=== PATIENT | female | born 1950 | race Caucasian/White ===

== ENCOUNTER 2021-05-07 11:18 | Emergency (ER) | payer MEDICARE, OTHER ==
[2021-05-07] MEDS ORDERED: Sodium Chloride 0.9% 10 ML Syringe FLUSH PRN (12:04)
[2021-05-07] MEDS ORDERED: Aspirin 81 MG Tab.Chew PO ONE (12:05)
[2021-05-07] MEDS ORDERED: Diazepam 5 MG Tab PO ONE (12:05)
[2021-05-07] MEDS ORDERED: Ketorolac 30 MG/ML SDV IVPUSH ONE (12:05)
--- NOTE | 2021-05-07 12:12 | EDM.PDOC ---
ED HPI GENERAL MEDICAL PROBLEM - General Chief Complaint: Back Pain or Injury Stated Complaint: UPPER TORSO PAIN Time Seen by Provider: 05/07/21 11:56 Source of Information: Reports: Patient - History of Present Illness INITIAL COMMENTS - FREE TEXT/NARRATIVE: Marlene is a 71 y/o female who was sent to the ER by clinic staff with complaints of left sided chest/back pain. She reports that she has had the dull pain for the last 3 days. Does get a bit SOB at times and had 2 episodes of becoming diaphoretic. She does not have any cardiac history. Does report the dull pain goes up into her left axillae region. She did try some ibuprofen last night, but that did not give her much relief. She did also try a dose of aspirin and that helped a little bit. She denies any trauma, but does have a daily episode of hard sneezing and that may have pulled a muscle, but that has never happened before. Denies any family hx of clots. Left Middle Back Pain Score (Numeric/FACES): 6 - Related Data Allergies Allergy/AdvReac Type Severity Reaction Status Date / Time codeine Allergy Nausea and Verified 05/07/21 11:40 Vomiting Home Meds: Home Meds Cyclobenzaprine [Flexeril] 10 mg PO TID PRN #15 tab 05/07/21 [Rx] Past Medical History - Past Health History Medical/Surgical History: Denies Medical/Surgical History Social & Family History - Tobacco Use Tobacco Use Status *Q: Light Tobacco User Years of Tobacco use: 15 Packs/Tins Daily: 0.1 Review of Systems - Review of Systems Review Of Systems: See Below Constitutional: Reports: No Symptoms Eyes: Reports: No Symptoms Ears: Reports: No Symptoms Nose: Reports: No Symptoms Mouth/Throat: Reports: No Symptoms Respiratory: Reports: Shortness of Breath (occasional with pain in her left chest region) Cardiovascular: Reports: Chest Pain (left side and back ) GI/Abdominal: Reports: No Symptoms Genitourinary: Reports: No Symptoms Musculoskeletal: Reports: Back Pain Skin: Reports: No Symptoms Neurological: Reports: No Symptoms Psychiatric: Reports: No Symptoms ED EXAM, GENERAL - Physical Exam Exam: See Below Exam Limited By: No Limitations General Appearance: Alert, WD/WN, No Apparent Distress, Other (Adult female) Ears: Normal External Exam, Normal Canal, Hearing Grossly Normal Nose: Normal Inspection Throat/Mouth: Normal Inspection, Normal Lips, Normal Voice Head: Atraumatic, Normocephalic Neck: Normal Inspection, Supple Respiratory/Chest: Lungs Clear, Other (No reproducible chest pain on palpation) Cardiovascular: Normal Peripheral Pulses, Regular Rate, Rhythm GI/Abdominal: Normal Bowel Sounds, Soft (Female) Exam: Deferred Rectal (Female) Exam: Deferred Back Exam: Muscle Spasm (left upper back region) Extremities: Normal Inspection, Normal Range of Motion, No Pedal Edema, Normal Capillary Refill Neurological: Alert, Oriented, CN II-XII Intact, No Motor/Sensory Deficits Psychiatric: Normal Affect, Normal Mood Skin Exam: Warm, Dry, Intact, Normal Color Lymphatic: No Adenopathy #1 Interpretation EKG Date: 05/07/21 Time: 11:29 Rhythm: NSR Rate (Beats/Min): 67 [place]: Normal P-Wave: Present QRS: Normal ST-T: Normal QT: Normal EKG Interpretation Comments: NSR Course - Vital Signs Text/Narrative:: 1156 The patient was seen by the [employer]. Labs, Xray, and EKG ordered. Will need to rule out PE, but suspicious for musculoskeletal pain. Toradol 30mg IVP and Diazepam 10mg po ordered. ASA 324mg po to be repeated if not taken this AM at home. 1330 Labs reviewed, all negative findings. Xray reviewed and negative. Patient reports feeling better after meds and rest. Favor muscle spasm as diagnosis. Written instructions were given and she left the ER in stable condition. Last Recorded V/S: Last Vital Signs Temp 36.4 C 05/07/21 11:22 Pulse 71 05/07/21 11:22 Resp 14 05/07/21 11:22 BP 163/62 H 05/07/21 11:22 Pulse Ox 98 05/07/21 11:22 - Orders/Labs/Meds Orders: Active Orders 24 hr Category Date Time Status EKG Documentation Completion [RC] STAT Care 05/07/21 12:03 Active Ribs 3V wo Chest Lt [CR] Stat Exams 05/07/21 12:04 Ordered Sodium Chloride 0.9% [Saline Flush] Med 05/07/21 12:04 Active 10 ml FLUSH ASDIRECTED PRN Saline Lock Insert [OM.PC] Stat Oth 07/21/21 12:03 Ordered Medication Orders Sodium Chloride (Sodium Chloride 0.9% 10 Ml Syringe) 10 ml FLUSH ASDIRECTED PRN PRN Reason: Keep Vein Open Labs: Laboratory Tests 05/07/21 05/07/21 05/07/21 Range/Units 12:18 12:18 12:18 WBC 10.0 (4.0-10.0) x10^3/uL RBC 5.12 (4.00-5.50) x10^6/uL Hgb 15.8 (12.0-16.0) g/dL Hct 47.1 H (33.0-47.0) % MCV 92.0 (78.0-93.0) fL MCH 30.9 (26.0-32.0) pg MCHC 33.5 (32.0-36.0) g/dL RDW Coeff of Kirill 13.7 (10.0-15.0) % Plt Count 307 (130-400) x10^3/uL Neut % (Auto) 78.6 (50.0-80.0) % Lymph % (Auto) 15.7 L (25.0-50.0) % [place] % (Auto) 4.1 (2.0-11.0) % Eos % (Auto) 1.3 (0.0-4.0) % Baso % (Auto) 0.3 (0.2-1.2) % D-Dimer, Quantitative 0.47 (<=0.58) mg/LFEU Sodium 141 (136-145) mmol/L Potassium 4.7 (3.5-5.1) mmol/L Chloride 104 (98-107) mmol/L Carbon Dioxide 31 (21-32) mmol/L Anion Gap 10.7 (5-15) mmol/L BUN 17 (7-18) mg/dL Creatinine 1.0 (0.55-1.02) mg/dL Est Cr Clr Drug Dosing TNP Estimated GFR (MDRD) 55 Glucose 99 (70-99) mg/dL Calcium 8.8 (8.5-10.1) mg/dL Corrected Calcium 8.8 (8.5-10.1) mg/dL Total Bilirubin 0.3 (0.2-1.0) mg/dL AST 25 (15-37) U/L ALT 42 (14-59) U/L Alkaline Phosphatase 97 (46-116) U/L Troponin I High Sens 5 (<=51) ng/L Total Protein 7.6 (6.4-8.2) g/dL Albumin 4.0 (3.4-5.0) g/dL Globulin 3.6 Albumin/Globulin Ratio 1.11 Meds: Medications Generic Name Dose Route Start Last Admin Trade Name Иван PRN Reason Stop Dose Admin Sodium Chloride 10 ml 05/07/21 12:04 Sodium Chloride 0.9% 10 Ml Syringe FLUSH ASDIRECTED PRN Keep Vein Open Discontinued Medications Generic Name Dose Route Start Last Admin Trade Name Freelvia PRN Reason Stop Dose Admin Aspirin 324 mg 05/07/21 12:05 05/07/21 11:30 Aspirin 81 Mg Tab.Chew PO 05/07/21 12:06 324 mg ONETIME ONE Administration Diazepam 10 mg 05/07/21 12:05 05/07/21 12:21 Diazepam 5 Mg Tab PO 05/07/21 12:06 10 mg ONETIME ONE Administration Ketorolac Tromethamine 30 mg 05/07/21 12:05 05/07/21 12:22 Ketorolac 30 Mg/Ml Sdv IVPUSH 05/07/21 12:06 30 mg ONETIME ONE Administration - Radiology Interpretation Free Text/Narrative:: XR Chest/Ribs 2V=negative (see final report) Departure - Departure Time of Disposition: 13:35 Disposition: Home, Self-Care 01 Condition: Good Clinical Impression: Muscle spasm - Discharge Information Prescriptions: Cyclobenzaprine [Flexeril] 10 mg PO TID PRN #15 tab PRN Reason: Spasms Instructions: Muscle Cramps and Spasms Referrals: PCP,None [Primary Care Provider] - Forms: ED Department Discharge Additional Instructions: -Ibuprofen 200mg 3 tabs orally every 6 hours x 5-7 days then every 6-8 hours as needed (Use over the counter meds) OR -Naproxsen 200mg 2 tablets oral twice daily. -Cyclobenzaprine 10 mg orally every 8 hours as needed for muscle spasms #15 (Rx) -Ice or heat applied to the area as needed -Rest, Increase activity as able -Follow up with your Primary Care Provider to arrange further diagnostic testing if the pain persists -Return to the ER if any other concerns Sepsis Event Note (ED) - Evaluation Sepsis Screening Result: No Definite Risk - Focused Exam Vital Signs: Vital Signs Temp Pulse Resp BP Pulse Ox 05/07/21 11:22 36.4 C 71 14 163/62 H 98 - My Orders Last 24 Hours: My Active Orders 05/07/21 12:03 EKG Documentation Completion [RC] STAT Saline Lock Insert [OM.PC] Stat 05/07/21 12:04 Ribs 3V wo Chest Lt [CR] Stat Sodium Chloride 0.9% [Saline Flush] 10 ml FLUSH ASDIRECTED PRN - Assessment/Plan Last 24 Hours: My Active Orders 05/07/21 12:03 EKG Documentation Completion [RC] STAT Saline Lock Insert [OM.PC] Stat 05/07/21 12:04 Ribs 3V wo Chest Lt [CR] Stat Sodium Chloride 0.9% [Saline Flush] 10 ml FLUSH ASDIRECTED PRN Assessment:: 1)Muscle Spasms Plan: -As above
[2021-05-07 12:45] LABS: CHLORIDE,CL 104 mmol/L (98-107); SODIUM,NA 141 mmol/L (136-145)
[2021-05-07 12:48] LABS: ANION GAP 10.7 mmol/L (5-15)
--- NOTE | 2021-05-07 13:12 | CR ---
[id number] RAD/RAD Ribs Left W PA Chest Exam: RAD Ribs Left W PA Chest Clinical Data: CHEST PAIN BACK PAIN COMPARISON: NO PREVIOUS SIMILAR EXAM IS AVAILABLE FINDINGS: The lungs are clear There is no pneumothorax The cardiac silhouette also is normal No recent left-sided rib fractures are seen IMPRESSION: NEGATIVE EXAM Clay Steiner MD 05/07/21 [id number] Thank you for allowing us to participate in the care of your patient.
== END 2021-05-07 13:45 | disposition home or self-care (01) ==
LOC: VM.ED 11:18
DX: M62.838 Other muscle spasm (principal); Z88.5 Allergy status to narcotic agent; Z72.0 Tobacco use
CPT/HCPCS: 36415; 71101-LT; 80053; 84484; 85025; 85379; 93005; 93010; 96374; 99284; 99285-25; A9270-GY; J1885

== ENCOUNTER 2023-11-04 12:27 | Day surgery (SDC) | payer MEDICARE, OTHER ==
[~2023-11-04 12:27] MED LIST: Lactated Ringers 1,000 ML IV SCH
[2023-11-04] MEDS ORDERED: Propofol 200 MG/20 ML SDV ONE ×2 (13:35→15:25)
[2023-11-04] MEDS ORDERED: fentaNYL 100 MCG/2 ML SDV ONE (13:35)
[2023-11-04] MEDS ORDERED: Ondansetron 4 MG/2 ML SDV ONE (14:48)
== END 2023-11-04 16:43 | disposition home or self-care (01) ==
LOC: VM.SDS 12:27
PROVIDERS: ATTEND Family Medicine
DX: K52.831 Collagenous colitis (principal); K57.30 Diverticulosis of large intestine without perforation or abscess without bleeding; F32.A Depression, unspecified; Z79.899 Other long term (current) drug therapy; Z88.5 Allergy status to narcotic agent
CPT/HCPCS: 00811; 45380; J2405; J2704; J3010; J7120; 88305